=== PATIENT | female | born 1940 | race Caucasian/White ===

== ENCOUNTER 2016-10-25 09:04 | Emergency (ER) | payer MEDICARE, OTHER ==
[~2016-10-25] VITALS: Ht 165.1 cm; Wt 70.0 kg
[~2016-10-25 09:04] MED LIST: ACIPHEX20 MG OR; ADULT ASA81 MG OR; ASA LO-DOSE81 MG OR; ASPIRIN LOW DOS81 M2 PO; AUGMENTIN875TAB PO; BISAC-EVAC10 MG RE; CALCIUM 6001 TAB PO; CARISOPRODOL350 M1 PO; CEPH500C57 OR; CLARINEX D OR; COMBIVENT IN; DARVOCET-N 100100 MG OR; DILAUDID4 MG OR; DUONEB IN; ENALAPRIL10 MG OR; ENALAPRIL10 MG PO; ESTRACE1 MG OR; FLAGYL250 MG OR; GABAPENTIN400 MG; GABAPENTIN400 MG PO; HYDROCODONE/ACE1 TAB PO; IMITREX100 MG OR; LANTAPROST OU; LEVAQUIN500 MG OR; LORTAB 7.5 OR; LUTEIN1 CAP PO; MEDDOSEPAK OR; METOPROL TAR25 MG PO; MULTI VITAMN OR; MULTIVITAMIN OR; NAPROXEN500 MG OR; NEURONTIN400 MG OR; PRAVASTATIN SOD20 MG PO; PRESERVISION/LUTEIN PO; PROTONIX40 M2 PO; ROBITUSSIN AC10 ML PO; SOMA250 MG PO; SOMA350 MG OR; STOOL SOFTNR1 TAB OR; TYLENOL PM PO; VALIUM5 MG OR; VICODIN1 TAB; VICODIN1 TAB OR; VYTORIN 10/201 TAB OR; XANAX0.25 MG OR; XANAX0.25 MG PO; ZANTAC300 MG OR; ZYRTEC1 MG/ML OR; [UNRECOGNIZED DRUG - OTHER] PO
[2016-10-25 09:18] VITALS: BP 158/70
[2016-10-25] MEDS ORDERED: GABAPENTIN100 MG PO (09:24)
[2016-10-25] MEDS ORDERED: PROLENSA0.07 % IO (09:26)
[2016-10-25] MEDS ORDERED: WARFARIN2.5 MG PO (09:28)
[2016-10-25] MEDS ORDERED: CELEBREX200 M1 PO (09:29)
[2016-10-25] MEDS ORDERED: AMITRIPTYLIN25 MG PO (09:32)
[2016-10-25 09:38] LABS: HEMATOCRIT 31.6 % (37.0-47.0); HEMOGLOBIN 10.6 g/dl (12.0-16.0); IMMATURE GRANULOCYTES 0.4 % (0.0-1.0); MEAN CELL VOLUME 88.8 fL CALC (80.0-100.0); MEAN CORPUSCULAR HGB 29.8 pG CALC (26.0-32.0); MEAN CORPUSCULAR HGB CONC 33.5 g/L CALC (32.0-36.0); NEUT# 10.13 thou/uL (2.00-7.15); RED BLOOD COUNT 3.56 mill/uL (4.20-5.60)
[2016-10-25 09:43] LABS: INTERNATIONAL NORMALIZED RATIO 1.1 RATIO (0.7-1.3); PROTHROMBIN TIME 12.4 SECONDS (9.0-12.5)
[2016-10-25 09:45] LABS: ALBUMIN 3.4 g/dL (3.2-5.0); ALKALINE PHOSPHATASE 102 u/l (38-126); ANION GAP 10 (6-22 (CALC)); BILIRUBIN, TOTAL 0.4 mg/dL (0.0-1.4); BUN 14 mg/dL (8-23); BUN/CREATININE RATIO 29 (12-20 (CALC)); CALCIUM 8.8 mg/dL (8.4-10.2); CARBON DIOXIDE 24 mmol/l (22-30); CHLORIDE 103 mmol/l (95-108); CREATININE 0.5 mg/dL (0.5-1.0); GFR > 60 ML/MIN (>=60 (CALC)); GFR FOR AFR.AMER. > 60 ML/MIN (>=60 (CALC)); GLUCOSE 139 mg/dL (82-115); POTASSIUM 3.7 mmol/l (3.5-5.1); SGOT/AST 27 u/l (9-36); SGPT/ALT 37 u/l (11-66); SODIUM 135 mmol/l (137-146); TOTAL PROTEIN 6.6 g/dL (6.3-8.2)
[2016-10-25 09:56] LABS: MYOGLOBIN 51 ng/mL (0 - 62)
== END 2016-10-25 11:15 | disposition home or self-care (01) ==
LOC: ED 09:04
PROVIDERS: Emergency Medicine
DX: S40.011A Contusion of right shoulder, initial encounter (principal); S80.01XA Contusion of right knee, initial encounter; W01.198A Fall on same level from slipping, tripping and stumbling with subsequent striking against other object, initial encounter; Y93.89 Activity, other specified; Y92.008 Other place in unspecified non-institutional (private) residence as the place of occurrence of the external cause; F17.200 Nicotine dependence, unspecified, uncomplicated

== ENCOUNTER 2017-10-20 06:40 | Day surgery (SDC) | payer MEDICARE ==
[~2017-10-20 06:40] MED LIST changes: +AMITRIPTYLIN25 MG PO; +CALCIUM600 M3 PO; +CARAFATE1 GM PO; +CELEBREX200 M1 PO; +GABAPENTIN100 MG PO; +PROLENSA0.07 % IO; +SOMA350 MG PO; +WARFARIN2.5 MG PO
[2017-10-20] MEDS ORDERED: LISINOPRIL5 MG PO (07:01)
[2017-10-20] MEDS ORDERED: EYE VITAMINS PO (07:03)
[2017-10-20 09:33] VITALS: BP 138/63
== END 2017-10-20 09:18 | disposition home or self-care (01) ==
LOC: ENDO 06:40 → ORM 08:10 → ENDO 08:50 → ORM 08:50 → ENDO 09:18 → ORM 09:20
PROVIDERS: ATTEND Surgery
PROC: 0DJ08ZZ Inspection of Upper Intestinal Tract, Via Natural or Artificial Opening Endoscopic (ICD-10-PCS; principal; 2017-10-20)
DX: K21.9 Gastro-esophageal reflux disease without esophagitis (principal)

== ENCOUNTER 2018-03-18 09:49 | Emergency (ER) | payer MEDICARE ==
[~2018-03-18] VITALS: Ht 167.6 cm; Wt 75.0 kg
[~2018-03-18 09:49] MED LIST changes: +ADLT ASA LOW81 MG PO; -ASPIRIN LOW DOS81 M2 PO; +EYE VITAMINS PO; +LISINOPRIL5 MG PO
[2018-03-18] MEDS ORDERED: AMITRIPTYLIN50 MG PO (10:55)
[2018-03-18] MEDS ORDERED: GABAPENTIN800 MG PO (10:56)
[2018-03-18] MEDS ORDERED: METO25TAB PO (11:09)
[2018-03-18] MEDS ORDERED: SOMA350 MG PO (11:10)
[2018-03-18 11:45] VITALS: BP 134/74
== END 2018-03-18 11:45 | disposition home or self-care (01) ==
LOC: ED 09:49
DX: S46.911A Strain of unspecified muscle, fascia and tendon at shoulder and upper arm level, right arm, initial encounter (principal); X50.0XXA Overexertion from strenuous movement or load, initial encounter; Y92.009 Unspecified place in unspecified non-institutional (private) residence as the place of occurrence of the external cause

== ENCOUNTER 2018-06-28 11:38 | Emergency (ER) | payer MEDICARE ==
[~2018-06-28] VITALS: Ht 167.6 cm; Wt 76.4 kg
[~2018-06-28 11:38] MED LIST changes: -ALPRAZOLAM0.25 M1 PO; -AMLODIPINE5 MG PO; -ARTIFI TEAR1 OU; -CARAFATE1 G1 PO; -COMBIVENT RESPIMAT IN; -PERCOCET1 TA4 PO; -VICODIN HP1 TA1 PO; -VITAMIN A PO
[2018-06-28] MEDS ORDERED: VICODIN HP1 TA1 PO (15:08)
[2018-06-28 15:17] VITALS: BP 143/84
[2018-07-01] MEDS ORDERED: AMLODIPINE5 MG PO (15:11)
[2018-07-01] MEDS ORDERED: ALPRAZOLAM0.25 M1 PO (15:13)
[2018-07-01] MEDS ORDERED: COMBIVENT RESPIMAT IN (15:14)
[2018-07-01] MEDS ORDERED: VITAMIN A PO (15:14)
[2018-07-01] MEDS ORDERED: ARTIFI TEAR1 OU (15:16)
[2018-07-01] MEDS ORDERED: CARAFATE1 G1 PO (15:17)
[2018-07-01] MEDS ORDERED: SOMA350 MG PO (15:18)
== END 2018-06-28 15:32 | disposition home or self-care (01) ==
LOC: ED 11:38
PROC: 0RSJXZZ Reposition Right Shoulder Joint, External Approach (ICD-10-PCS; principal; 2018-06-28)
DX: T84.028A Dislocation of other internal joint prosthesis, initial encounter (principal); I10 Essential (primary) hypertension; F17.210 Nicotine dependence, cigarettes, uncomplicated; Y83.1 Surgical operation with implant of artificial internal device as the cause of abnormal reaction of the patient, or of later complication, without mention of misadventure at the time of the procedure; Z96.611 Presence of right artificial shoulder joint; M25.511 Pain in right shoulder; Z47.1 Aftercare following joint replacement surgery

== ENCOUNTER → 2018-06-28 | Outpatient (REF) | payer MEDICARE ==
[~2018-06-28] MED LIST changes: +ALPRAZOLAM0.25 M1 PO; +AMITRIPTYLIN50 MG PO; +AMLODIPINE5 MG PO; +ARTIFI TEAR1 OU; +CARAFATE1 G1 PO; +COMBIVENT RESPIMAT IN; +GABAPENTIN800 MG PO; +METO25TAB PO; +PERCOCET1 TA4 PO; +VICODIN HP1 TA1 PO; +VITAMIN A PO
== END | disposition home or self-care (01) ==
LOC: DI 11:10
PROVIDERS: ATTEND Internal Medicine
DX: M25.511 Pain in right shoulder (principal); Z47.1 Aftercare following joint replacement surgery; Z96.611 Presence of right artificial shoulder joint

== ENCOUNTER 2018-07-04 11:10 | Day surgery (SDC) | payer MEDICARE ==
[~2018-07-04 11:10] MED LIST changes: +ALPRAZOLAM0.25 M1 PO; +AMLODIPINE5 MG PO; +ARTIFI TEAR1 OU; +CARAFATE1 G1 PO; +COMBIVENT RESPIMAT IN; +VICODIN HP1 TA1 PO; +VITAMIN A PO
[2018-07-04 12:17] LABS: HEMOGLOBIN 12.3 g/dl (12.0-16.0); IMMATURE GRANULOCYTES 0.3 % (0.0-5.0); MEAN CELL VOLUME 87.8 fL CALC (80.0-100.0); MEAN CORPUSCULAR HGB 28.4 pG CALC (26.0-32.0); MEAN CORPUSCULAR HGB CONC 32.4 g/L CALC (32.0-36.0); NEUT# 5.04 thou/uL (2.00-7.15); RED BLOOD COUNT 4.33 mill/uL (4.20-5.60); RED CELL DISTRI WIDTH 14.5 % (11.5-15.5)
[2018-07-04 12:34] LABS: ANION GAP 13 (6-22 (CALC)); BUN 16 mg/dL (8-23); BUN/CREATININE RATIO 27 (12-20 (CALC)); CARBON DIOXIDE 25 mmol/l (22-30); CHLORIDE 106 mmol/l (95-108); CREATININE 0.6 mg/dL (0.5-1.0); GFR > 60 ML/MIN (>=60 (CALC)); GFR FOR AFR.AMER. > 60 ML/MIN (>=60 (CALC)); SODIUM 140 mmol/l (137-146)
[2018-07-04] MEDS ORDERED: PERCOCET1 TA4 PO (14:31)
[2018-07-04 17:59] VITALS: BP 129/59
== END 2018-07-04 15:15 | disposition home or self-care (01) ==
LOC: ORM 11:10 → MS2 11:10 → ORM 15:15 → EDSTATUS 16:00 → MS2 16:00
PROVIDERS: ATTEND Orthopaedic Surgery
PROC: 0RWJXJZ Revision of Synthetic Substitute in Right Shoulder Joint, External Approach (ICD-10-PCS; principal; 2018-07-04)
PROC: 3E0T3BZ Introduction of Anesthetic Agent into Peripheral Nerves and Plexi, Percutaneous Approach (ICD-10-PCS; 2018-07-04)
DX: T84.028A Dislocation of other internal joint prosthesis, initial encounter (principal); I10 Essential (primary) hypertension; E78.5 Hyperlipidemia, unspecified; Y83.1 Surgical operation with implant of artificial internal device as the cause of abnormal reaction of the patient, or of later complication, without mention of misadventure at the time of the procedure; Z96.611 Presence of right artificial shoulder joint
CPT/HCPCS: C9290

== ENCOUNTER 2018-07-15 11:18 | Emergency (ER) | payer MEDICARE ==
[~2018-07-15] VITALS: Ht 167.6 cm; Wt 76.4 kg
[~2018-07-15 11:18] MED LIST changes: +PERCOCET1 TA4 PO
[2018-07-15] MEDS ORDERED: AMLODIPINE2.5 MG PO (11:44)
[2018-07-15] MEDS ORDERED: CARAFATE1 GM PO (11:45)
[2018-07-15] MEDS ORDERED: VITAMIN D400 UNI1 PO (11:46)
[2018-07-15] MEDS ORDERED: PREDNISONE20 MG PO (11:49)
[2018-07-15 12:31] LABS: HEMATOCRIT 39.4 % (37.0-47.0); HEMOGLOBIN 12.6 g/dl (12.0-16.0); IMMATURE GRANULOCYTES 0.6 % (0.0-5.0); MEAN CELL VOLUME 88.9 fL CALC (80.0-100.0); MEAN CORPUSCULAR HGB 28.4 pG CALC (26.0-32.0); NEUT# 8.23 thou/uL (2.00-7.15); RED BLOOD COUNT 4.43 mill/uL (4.20-5.60); RED CELL DISTRI WIDTH 15.3 % (11.5-15.5)
[2018-07-15 13:08] LABS: ALBUMIN 3.9 g/dL (3.2-5.0); ALKALINE PHOSPHATASE 122 u/l (38-126); ANION GAP 16 (6-22 (CALC)); BILIRUBIN, TOTAL 0.4 mg/dL (0.0-1.4); BUN 19 mg/dL (8-23); BUN/CREATININE RATIO 27 (12-20 (CALC)); CARBON DIOXIDE 21 mmol/l (22-30); CHLORIDE 106 mmol/l (95-108); CREATININE 0.7 mg/dL (0.5-1.0); GFR > 60 ML/MIN (>=60 (CALC)); GFR FOR AFR.AMER. > 60 ML/MIN (>=60 (CALC)); POTASSIUM 4.2 mmol/l (3.5-5.1); SGOT/AST 27 u/l (9-36); SODIUM 139 mmol/l (137-146); TOTAL PROTEIN 7.2 g/dL (6.3-8.2)
[2018-07-15 13:52] LABS: URINE BILIRUBIN - DIPSTICK NEGATIVE (NEGATIVE); URINE BLOOD DIPSTICK NEGATIVE (NEGATIVE); URINE COLOR YELLOW; URINE GLUCOSE - DIPSTICK NEGATIVE (NEGATIVE); URINE KETONE NEGATIVE (NEGATIVE); URINE LEUK ESTERASE NEGATIVE (Negative); URINE NITRITE - DIPSTICK NEGATIVE (Negative); URINE PH 5.5 (4.5-8.0); URINE PROTEIN - DIPSTICK NEGATIVE (NEG-TRACE); URINE SPECIFIC GRAVITY <=1.005; URINE UROBILINOGEN - DIPSTICK 0.2 E.U./dL (0.2)
[2018-07-15 14:05] LABS: URINE CLARITY CLEAR
[2018-07-15] MEDS ORDERED: DELTASONE20 MG PO (15:07)
[2018-07-15] MEDS ORDERED: DILAUDID2 MG PO (15:07)
[2018-07-15 15:20] VITALS: BP 136/63
[2018-07-15] MEDS ORDERED: ONDANSETRON4 MG PO (15:36)
== END 2018-07-15 15:37 | disposition home or self-care (01) ==
LOC: ED 11:18 → ED-I 11:37 → ED 11:37 → ED-I 14:07 → ED 15:37
PROVIDERS: Emergency Medicine
PROC: 0RSJXZZ Reposition Right Shoulder Joint, External Approach (ICD-10-PCS; principal; 2018-07-15)
DX: M54.5 Low back pain (principal); G89.29 Other chronic pain; M24.411 Recurrent dislocation, right shoulder; I10 Essential (primary) hypertension

== ENCOUNTER 2018-07-18 09:54 | Day surgery (SDC) | payer MEDICARE ==
[~2018-07-18] VITALS: Ht 167.6 cm; Wt 76.2 kg
[~2018-07-18 09:54] MED LIST changes: +AMLODIPINE2.5 MG PO; +DELTASONE20 MG PO; +DILAUDID2 MG PO; +ONDANSETRON4 MG PO; +PREDNISONE20 MG PO; +VITAMIN D400 UNI1 PO
[2018-07-18] MEDS ORDERED: PERCOCET 10/31 COMBO PO (16:13)
[2018-07-18 17:26] VITALS: BP 156/72
== END 2018-07-18 17:00 | disposition home or self-care (01) ==
LOC: ORM 09:54
PROVIDERS: ATTEND Orthopaedic Surgery
PROC: 0RWJXJZ Revision of Synthetic Substitute in Right Shoulder Joint, External Approach (ICD-10-PCS; principal; 2018-07-18)
PROC: 3E0T3BZ Introduction of Anesthetic Agent into Peripheral Nerves and Plexi, Percutaneous Approach (ICD-10-PCS; 2018-07-18)
DX: T84.028A Dislocation of other internal joint prosthesis, initial encounter (principal); Y83.1 Surgical operation with implant of artificial internal device as the cause of abnormal reaction of the patient, or of later complication, without mention of misadventure at the time of the procedure; Z96.611 Presence of right artificial shoulder joint; I10 Essential (primary) hypertension
CPT/HCPCS: J1100

== ENCOUNTER 2019-10-16 18:13 | Emergency (ER) | payer MEDICARE ==
[~2019-10-16] VITALS: Ht 167.6 cm; Wt 73.0 kg
[~2019-10-16 18:13] MED LIST changes: +PERCOCET 10/31 COMBO PO
[2019-10-16] MEDS ORDERED: VICODIN HP1 TA1 PO (18:45)
[2019-10-16] MEDS ORDERED: PROBIOTIC ACIDO1 CA1 PO (19:40)
[2019-10-16] MEDS ORDERED: AMOXICILLIN875 MG PO (19:40)
[2019-10-16 20:20] VITALS: BP 179/73
== END 2019-10-16 20:20 | disposition home or self-care (01) ==
LOC: ED 18:13
PROC: 0HQ1XZZ Repair Face Skin, External Approach (ICD-10-PCS; principal; 2019-10-16)
DX: S52.502A Unspecified fracture of the lower end of left radius, initial encounter for closed fracture (principal); S52.612A Displaced fracture of left ulna styloid process, initial encounter for closed fracture; S02.2XXA Fracture of nasal bones, initial encounter for closed fracture; S01.21XA Laceration without foreign body of nose, initial encounter; S80.811A Abrasion, right lower leg, initial encounter; I10 Essential (primary) hypertension; F17.200 Nicotine dependence, unspecified, uncomplicated; W01.0XXA Fall on same level from slipping, tripping and stumbling without subsequent striking against object, initial encounter; Y93.H2 Activity, gardening and landscaping; Y92.007 Garden or yard of unspecified non-institutional (private) residence as the place of occurrence of the external cause

== ENCOUNTER → 2020-04-23 | Day surgery (SDC) | payer MEDICARE ==
[~2020-04-23] VITALS: Ht 160 cm; Wt 71.7 kg
[~2020-04-23] MED LIST changes: +AMOXICILLIN875 MG PO; +MUCINEX DM1 TA1 PO; +PROBIOTIC ACIDO1 CA1 PO; +PROLIA60 MG/ML SC; +STOOL SOFTENER100 M2 PO; +XALATAN 0.005%2.5 ML OU
[2020-04-23 10:39] VITALS: BP 161/63
== END | disposition home or self-care (01) ==
LOC: ORM 07:35
PROVIDERS: ATTEND Surgery
PROC: 0DBG8ZX Excision of Left Large Intestine, Via Natural or Artificial Opening Endoscopic, Diagnostic (ICD-10-PCS; principal; 2020-04-23)
PROC: 0DJ08ZZ Inspection of Upper Intestinal Tract, Via Natural or Artificial Opening Endoscopic (ICD-10-PCS; 2020-04-23)
DX: D12.4 Benign neoplasm of descending colon (principal); K57.30 Diverticulosis of large intestine without perforation or abscess without bleeding; Q43.9 Congenital malformation of intestine, unspecified; K44.9 Diaphragmatic hernia without obstruction or gangrene; I10 Essential (primary) hypertension; Z83.71 Family history of colonic polyps; Z20.822 Contact with and (suspected) exposure to COVID-19